=== PATIENT | female | born 1970 | race Caucasian/White ===

== ENCOUNTER 2017-01-08 11:50 | Emergency (ER) | payer OTHER ==
[~2017-01-08 11:50] MED LIST: ALBUTEROL IN200 PUFF INH; ALBUTEROL0.63 MG/3 NEB; ATROVENT2.5 ML NEB; AZITHROMYCIN500 MG PO; BUSPIRONE HCL30 MG PO; CELEXA40 MG PO; CHILDRENS CHEWA81 MG PO; COZAAR100 MG PO; CYMBALTA30 MG PO; DESYREL50 MG PO; HCTZ25 MG PO; HYDROCODON-ACE1 EAC6 PO; HYDROXYZINE HCL10 MG PO; IBUPROFEN800 MG PO; INVOKANA300 MG PO; ISOSORBIDE MONO30 MG PO; METOPROLOL TART25 MG PO; MOTRIN600 MG PO; NITROGLYCERIN0.4 MG SL; PREDNISONE10 MG PO; REQUIP0.25 MG PO; SINGULAIR10 MG PO; TOPROL XL 50 MG50 MG PO; TYLENOL325 M1 PO; VISTARIL25 MG PO; VITAMIN D250000 UNIT PO; VITAMIN D350000 UNIT PO; XOPENEX0.63 MG/3 NEB; ZITHROMAX250 MG PO; ZITHROMAX500 MG PO
== END 2017-01-08 13:05 | disposition home or self-care (01) ==
LOC: ER 11:50
DX: J18.9 Pneumonia, unspecified organism (principal); R53.1 Weakness; G25.81 Restless legs syndrome; E11.9 Type 2 diabetes mellitus without complications; J44.9 Chronic obstructive pulmonary disease, unspecified; E03.9 Hypothyroidism, unspecified; F41.9 Anxiety disorder, unspecified; I10 Essential (primary) hypertension; E66.01 Morbid (severe) obesity due to excess calories; K21.9 Gastro-esophageal reflux disease without esophagitis; Z88.1 Allergy status to other antibiotic agents; Z79.899 Other long term (current) drug therapy
CPT/HCPCS: 71020; 81025; 87400; 99283

== ENCOUNTER 2017-01-22 12:36 | Observation (INO) | payer OTHER ==
[2017-01-22 15:39] LABS: HEMATOCRIT 39.2 % (34-45); HEMOGLOBIN 12.8 g/dL (11.2-15.7); MEAN CORPUSCULAR HEMOGLOBIN 30.1 pg (27.0-33.0); MEAN CORPUSCULAR HGB CONC 32.7 g/dL (32.0-36.0); MEAN CORPUSCULAR VOLUME 92.2 fL (79-95); MEAN PLATELET VOLUME 10.7 fl (7.5-11.5); RED BLOOD COUNT 4.25 x10_6/uL (3.9-5.2); RED CELL DISTRIBUTION WIDTH 13.3 % (11.7-14.4); WHITE BLOOD COUNT 6.3 x10_3/uL (4.0-10.0)
[2017-01-22 15:58] LABS: ALBUMIN 3.8 gm/dL (3.4-5.0); ALKALINE PHOSPHATASE 73 U/L (50-136); ALT/SGPT 33 U/L (3.5-33.9); AST/SGOT 41 U/L (7.04-26.96); BLOOD UREA NITROGEN 8 mg/dL (7-18); CALCIUM 8.8 mg/dL (8.7-10.7); CARBON DIOXIDE 21 mmol/L (21-32); CREATININE 0.7 mg/dL (0.6-1.3); GLUCOSE,RANDOM 189 mg/dL (70-99); POTASSIUM 3.8 mmol/L (3.5-5.1); SODIUM 138 mmol/L (136-145); TOTAL PROTEIN 6.6 gm/dL (6.4-8.2)
[2017-01-23 07:31] LABS: HEMATOCRIT 41.5 % (34-45); HEMOGLOBIN 13.1 g/dL (11.2-15.7); MEAN CORPUSCULAR HEMOGLOBIN 29.1 pg (27.0-33.0); MEAN CORPUSCULAR HGB CONC 31.6 g/dL (32.0-36.0); MEAN CORPUSCULAR VOLUME 92.2 fL (79-95); MEAN PLATELET VOLUME 10.4 fl (7.5-11.5); RED BLOOD COUNT 4.5 x10_6/uL (3.9-5.2); RED CELL DISTRIBUTION WIDTH 13.5 % (11.7-14.4); WHITE BLOOD COUNT 7.7 x10_3/uL (4.0-10.0)
[2017-01-23 07:50] LABS: BLOOD UREA NITROGEN 11 mg/dL (7-18); CALCIUM 9.3 mg/dL (8.7-10.7); CARBON DIOXIDE 23 mmol/L (21-32); CREATININE 0.6 mg/dL (0.6-1.3); GLUCOSE,RANDOM 191 mg/dL (70-99); POTASSIUM 4.2 mmol/L (3.5-5.1); SODIUM 141 mmol/L (136-145)
[2017-01-24 07:17] LABS: HEMATOCRIT 39.5 % (34-45); HEMOGLOBIN 12.8 g/dL (11.2-15.7); MEAN CORPUSCULAR HEMOGLOBIN 29.8 pg (27.0-33.0); MEAN CORPUSCULAR HGB CONC 32.4 g/dL (32.0-36.0); MEAN CORPUSCULAR VOLUME 92.1 fL (79-95); MEAN PLATELET VOLUME 10.7 fl (7.5-11.5); RED BLOOD COUNT 4.29 x10_6/uL (3.9-5.2); RED CELL DISTRIBUTION WIDTH 13.4 % (11.7-14.4); WHITE BLOOD COUNT 11.5 x10_3/uL (4.0-10.0)
[2017-01-24 07:28] LABS: BLOOD UREA NITROGEN 17 mg/dL (7-18); CALCIUM 9.2 mg/dL (8.7-10.7); CARBON DIOXIDE 24 mmol/L (21-32); CREATININE 0.7 mg/dL (0.6-1.3); GLUCOSE,RANDOM 230 mg/dL (70-99); POTASSIUM 4.3 mmol/L (3.5-5.1); SODIUM 137 mmol/L (136-145)
[2017-01-25 07:34] LABS: HEMATOCRIT 40.3 % (34-45); HEMOGLOBIN 12.9 g/dL (11.2-15.7); MEAN CORPUSCULAR HEMOGLOBIN 29.6 pg (27.0-33.0); MEAN CORPUSCULAR VOLUME 92.4 fL (79-95); MEAN PLATELET VOLUME 10.2 fl (7.5-11.5); RED BLOOD COUNT 4.36 x10_6/uL (3.9-5.2); RED CELL DISTRIBUTION WIDTH 13.5 % (11.7-14.4); WHITE BLOOD COUNT 11.6 x10_3/uL (4.0-10.0)
[2017-01-25 07:46] LABS: CARBON DIOXIDE 26 mmol/L (21-32); CREATININE 0.7 mg/dL (0.6-1.3); GLUCOSE,RANDOM 156 mg/dL (70-99); POTASSIUM 3.7 mmol/L (3.5-5.1); SODIUM 140 mmol/L (136-145)
[2017-01-25 07:48] LABS: BLOOD UREA NITROGEN 25 mg/dL (7-18)
== END 2017-01-25 11:40 | disposition home or self-care (01) ==
LOC: MS 12:36
PROVIDERS: ADMIT Family Medicine
PROC: 3E0234Z Introduction of Serum, Toxoid and Vaccine into Muscle, Percutaneous Approach (ICD-10-PCS; principal; 2017-01-25)
DX: J44.1 Chronic obstructive pulmonary disease with (acute) exacerbation (principal); I10 Essential (primary) hypertension; E11.9 Type 2 diabetes mellitus without complications; R07.89 Other chest pain; Z90.49 Acquired absence of other specified parts of digestive tract; Z98.890 Other specified postprocedural states; Z83.3 Family history of diabetes mellitus; Z80.9 Family history of malignant neoplasm, unspecified; R42 Dizziness and giddiness; R51 Headache; B95.7 Other staphylococcus as the cause of diseases classified elsewhere; Z88.1 Allergy status to other antibiotic agents; Z79.899 Other long term (current) drug therapy; Z79.1 Long term (current) use of non-steroidal anti-inflammatories (NSAID); Z23 Encounter for immunization
CPT/HCPCS: 36415; 71020; 80048; 80053; 80061; 82962; 83036; 87040; 87186; 87400; 90653; 94640; 96365; 96366; 96367; 96372; 96375; 96376; 99070; G0008; G0378; G0379; J2930

== ENCOUNTER 2017-01-28 12:08 | Emergency (ER) | payer OTHER ==
[2017-01-28 12:54] LABS: BASO % 0.3 % (0.1-1.2); EOS # 0.2 10_X3_uL (0.0-0.4); EOS % 2.3 % (0.7-5.8); GRAN # 4.1 10_X3_uL (1.6-6.1); GRAN % 63.4 % (34.0-71.1); HEMATOCRIT 43.9 % (34-45); HEMOGLOBIN 14.4 g/dL (11.2-15.7); LYMPH # 1.5 10_X3_uL (1.2-3.7); LYMPH % 22.6 % (19.3-51.7); MEAN CORPUSCULAR HEMOGLOBIN 29.9 pg (27.0-33.0); MEAN CORPUSCULAR HGB CONC 32.8 g/dL (32.0-36.0); MEAN CORPUSCULAR VOLUME 91.1 fL (79-95); MEAN PLATELET VOLUME 9.7 fl (7.5-11.5); MONO # 0.7 10_X3_uL (0.2-0.9); MONO % 11.4 % (4.7-12.5); PLATELET COUNT 262 x10_3/uL (182-369); RED BLOOD COUNT 4.82 x10_6/uL (3.9-5.2); RED CELL DISTRIBUTION WIDTH 13.5 % (11.7-14.4); WHITE BLOOD COUNT 6.5 x10_3/uL (4.0-10.0)
[2017-01-28 13:10] LABS: ALBUMIN 3.8 gm/dL (3.4-5.0); ALKALINE PHOSPHATASE 75 U/L (50-136); ALT/SGPT 22 U/L (3.5-33.9); AST/SGOT 15 U/L (7.04-26.96); BILIRUBIN,TOTAL 0.45 mg/dL (0.0-1.0); BLOOD UREA NITROGEN 14 mg/dL (7-18); CALCIUM 8.6 mg/dL (8.7-10.7); CARBON DIOXIDE 21 mmol/L (21-32); CREATININE 0.9 mg/dL (0.6-1.3); GLUCOSE,RANDOM 254 mg/dL (70-99); POTASSIUM 3.3 mmol/L (3.5-5.1); SODIUM 136 mmol/L (136-145); TOTAL PROTEIN 6.9 gm/dL (6.4-8.2)
== END 2017-01-28 13:50 | disposition home or self-care (01) ==
LOC: ER 12:08
PROVIDERS: Emergency Medicine
DX: J10.1 Influenza due to other identified influenza virus with other respiratory manifestations (principal); E11.9 Type 2 diabetes mellitus without complications; J44.9 Chronic obstructive pulmonary disease, unspecified; I10 Essential (primary) hypertension; Z87.01 Personal history of pneumonia (recurrent); Z88.1 Allergy status to other antibiotic agents; Z79.899 Other long term (current) drug therapy
CPT/HCPCS: 36415; 71020; 80053; 85025; 86738; 87400; 99283

== ENCOUNTER 2017-03-20 12:15 | Observation (INO) | payer OTHER | END 2017-03-22 09:14 | disposition other institution (70) | LOC: MS 12:15 | PROVIDERS: ADMIT Family Medicine | DX: J44.0 Chronic obstructive pulmonary disease with (acute) lower respiratory infection (principal); J20.9 Acute bronchitis, unspecified; J44.1 Chronic obstructive pulmonary disease with (acute) exacerbation; E11.9 Type 2 diabetes mellitus without complications; I10 Essential (primary) hypertension; Z90.49 Acquired absence of other specified parts of digestive tract; Z99.81 Dependence on supplemental oxygen; Z98.890 Other specified postprocedural states; Z80.9 Family history of malignant neoplasm, unspecified; Z82.49 Family history of ischemic heart disease and other diseases of the circulatory system; R09.02 Hypoxemia; I51.9 Heart disease, unspecified; F17.210 Nicotine dependence, cigarettes, uncomplicated; Z88.1 Allergy status to other antibiotic agents; Z88.0 Allergy status to penicillin; Z79.899 Other long term (current) drug therapy; Z79.1 Long term (current) use of non-steroidal anti-inflammatories (NSAID); Z79.891 Long term (current) use of opiate analgesic; Z86.14 Personal history of Methicillin resistant Staphylococcus aureus infection | CPT/HCPCS: 36415; 71020; 80048; 80053; 80061; 82962; 83036; 86738; 87040; 94640; 94664; 96365; 96366; 96367; 96372; 96375; 96376; 99070; G0378; J2930 ==

== ENCOUNTER 2017-03-20 12:15 | Inpatient (IN) | payer OTHER ==
[~2017-03-20] VITALS: Ht 165.1 cm; Wt 126.0 kg
[2017-03-20 13:32] LABS: HEMATOCRIT 41.5 % (34-45); HEMOGLOBIN 13.7 g/dL (11.2-15.7); MEAN CORPUSCULAR HEMOGLOBIN 30.4 pg (27.0-33.0); MEAN CORPUSCULAR VOLUME 92.2 fL (79-95); MEAN PLATELET VOLUME 9.9 fl (7.5-11.5); RED BLOOD COUNT 4.5 x10_6/uL (3.9-5.2); RED CELL DISTRIBUTION WIDTH 13.4 % (11.7-14.4); WHITE BLOOD COUNT 5.7 x10_3/uL (4.0-10.0)
[2017-03-20 13:47] LABS: BLOOD UREA NITROGEN 9 mg/dL (7-18); CALCIUM 8.6 mg/dL (8.7-10.7); CARBON DIOXIDE 22 mmol/L (21-32); CREATININE 0.7 mg/dL (0.6-1.3); GLUCOSE,RANDOM 196 mg/dL (70-99); POTASSIUM 3.5 mmol/L (3.5-5.1); SODIUM 138 mmol/L (136-145)
[2017-03-21 07:05] LABS: HEMATOCRIT 41.8 % (34-45); HEMOGLOBIN 13.6 g/dL (11.2-15.7); MEAN CORPUSCULAR HEMOGLOBIN 29.8 pg (27.0-33.0); MEAN CORPUSCULAR HGB CONC 32.5 g/dL (32.0-36.0); MEAN CORPUSCULAR VOLUME 91.7 fL (79-95); MEAN PLATELET VOLUME 10.6 fl (7.5-11.5); RED BLOOD COUNT 4.56 x10_6/uL (3.9-5.2); RED CELL DISTRIBUTION WIDTH 13.1 % (11.7-14.4); WHITE BLOOD COUNT 5.5 x10_3/uL (4.0-10.0)
[2017-03-21 07:25] LABS: AHDL CHOLESTEROL 60 mg/dL (>40); ALBUMIN 4.3 gm/dL (3.4-5.0); ALKALINE PHOSPHATASE 61 U/L (50-136); ALT/SGPT 38 U/L (3.5-33.9); AST/SGOT 27 U/L (7.04-26.96); BILIRUBIN,TOTAL 0.34 mg/dL (0.0-1.0); BLOOD UREA NITROGEN 13 mg/dL (7-18); CALCIUM 9.1 mg/dL (8.7-10.7); CARBON DIOXIDE 21 mmol/L (21-32); CHOLESTEROL 171 mg/dL (0-200); CREATININE 0.6 mg/dL (0.6-1.3); GLUCOSE,RANDOM 256 mg/dL (70-99); LDL CHOLESTEROL 98 mg/dL (0-99); POTASSIUM 4.1 mmol/L (3.5-5.1); SODIUM 139 mmol/L (136-145); TRIGLYCERIDES 95 mg/dL (30-200)
[2017-03-22 06:40] LABS: HEMATOCRIT 40.2 % (34-45); HEMOGLOBIN 13.2 g/dL (11.2-15.7); MEAN CORPUSCULAR HGB CONC 32.8 g/dL (32.0-36.0); MEAN CORPUSCULAR VOLUME 91.4 fL (79-95); MEAN PLATELET VOLUME 10.8 fl (7.5-11.5); RED BLOOD COUNT 4.4 x10_6/uL (3.9-5.2); RED CELL DISTRIBUTION WIDTH 13.2 % (11.7-14.4)
[2017-03-22 06:48] LABS: BLOOD UREA NITROGEN 16 mg/dL (7-18); CALCIUM 9.3 mg/dL (8.7-10.7); CARBON DIOXIDE 23 mmol/L (21-32); CREATININE 0.6 mg/dL (0.6-1.3); GLUCOSE,RANDOM 303 mg/dL (70-99); POTASSIUM 4.2 mmol/L (3.5-5.1); SODIUM 136 mmol/L (136-145)
== END 2017-03-23 13:40 | disposition home or self-care (01) | DRG 192 ==
LOC: MS 12:15
PROVIDERS: ADMIT Family Medicine
DX: J44.0 Chronic obstructive pulmonary disease with (acute) lower respiratory infection (principal); J20.9 Acute bronchitis, unspecified; J44.1 Chronic obstructive pulmonary disease with (acute) exacerbation; E11.9 Type 2 diabetes mellitus without complications; I10 Essential (primary) hypertension; Z90.49 Acquired absence of other specified parts of digestive tract; Z99.81 Dependence on supplemental oxygen; Z98.890 Other specified postprocedural states; Z80.9 Family history of malignant neoplasm, unspecified; Z82.49 Family history of ischemic heart disease and other diseases of the circulatory system; R09.02 Hypoxemia; I51.9 Heart disease, unspecified; F17.210 Nicotine dependence, cigarettes, uncomplicated; Z88.1 Allergy status to other antibiotic agents; Z88.0 Allergy status to penicillin; Z79.899 Other long term (current) drug therapy; Z79.1 Long term (current) use of non-steroidal anti-inflammatories (NSAID); Z79.891 Long term (current) use of opiate analgesic; Z86.14 Personal history of Methicillin resistant Staphylococcus aureus infection
CPT/HCPCS: 36415; 71020; 80048; 80053; 80061; 82962; 83036; 86738; 87040; 93041; 94640; 94664; 99070; J2930; Q0169